=== PATIENT | female | born 1955 | race Caucasian/White ===

== ENCOUNTER 2023-02-21 11:55 | Outpatient (CLI) | payer MEDICARE | END 2023-02-21 11:56 | disposition home or self-care (01) | LOC: RAD 11:55 | PROVIDERS: ATTEND Nurse Practitioner Family | DX: R05.3 Chronic cough (principal); J98.4 Other disorders of lung; M89.9 Disorder of bone, unspecified | CPT/HCPCS: 71046 ==

== ENCOUNTER 2023-06-28 09:30 | Outpatient (CLI) | payer MEDICARE | END 2023-06-28 09:31 | disposition home or self-care (01) | LOC: PET 09:30 | PROVIDERS: ATTEND Internal Medicine Hematology & Oncology | DX: C50.812 Malignant neoplasm of overlapping sites of left female breast (principal); C79.51 Secondary malignant neoplasm of bone | CPT/HCPCS: 78815; A9552 ==

== ENCOUNTER 2023-10-04 09:30 | Outpatient (CLI) | payer MEDICARE | END 2023-10-04 09:31 | disposition home or self-care (01) | LOC: PET 09:30 | PROVIDERS: ATTEND Internal Medicine Hematology & Oncology | DX: C50.812 Malignant neoplasm of overlapping sites of left female breast (principal); C79.51 Secondary malignant neoplasm of bone | CPT/HCPCS: 78815; A9552 ==

== ENCOUNTER 2023-12-15 09:01 | Outpatient (CLI) | payer MEDICARE | END 2023-12-15 09:02 | disposition home or self-care (01) | LOC: NM 09:01 | PROVIDERS: ATTEND Internal Medicine Hematology & Oncology | DX: C50.812 Malignant neoplasm of overlapping sites of left female breast (principal); C79.51 Secondary malignant neoplasm of bone | CPT/HCPCS: 78306; A9503 ==

== ENCOUNTER 2024-04-18 08:18 | Outpatient (CLI) | payer MEDICARE | END 2024-04-18 08:19 | disposition home or self-care (01) | LOC: MRI 08:18 | PROVIDERS: ATTEND Internal Medicine Hematology & Oncology | DX: C50.812 Malignant neoplasm of overlapping sites of left female breast (principal); C79.51 Secondary malignant neoplasm of bone; R16.0 Hepatomegaly, not elsewhere classified | CPT/HCPCS: 74183; 82565 ==

== ENCOUNTER 2024-04-25 08:34 | Outpatient (CLI) | payer MEDICARE | END 2024-04-25 08:35 | disposition home or self-care (01) | LOC: NM 08:34 | PROVIDERS: ATTEND Internal Medicine Hematology & Oncology | DX: C50.812 Malignant neoplasm of overlapping sites of left female breast (principal); C79.51 Secondary malignant neoplasm of bone; R94.8 Abnormal results of function studies of other organs and systems; Z96.652 Presence of left artificial knee joint | CPT/HCPCS: 78306; A9503 ==

== ENCOUNTER 2024-09-13 08:37 | Outpatient (CLI) | payer MEDICARE ==
[2024-09-13] MEDS ORDERED: Magnevist 469MG/ML 20 ML VIAL ONE (12:37)
== END 2024-09-13 08:38 | disposition home or self-care (01) ==
LOC: NM 08:37
PROVIDERS: ATTEND Internal Medicine Hematology & Oncology
DX: C50.812 Malignant neoplasm of overlapping sites of left female breast (principal); C78.7 Secondary malignant neoplasm of liver and intrahepatic bile duct; C79.51 Secondary malignant neoplasm of bone; R59.0 Localized enlarged lymph nodes
CPT/HCPCS: 36415; 74183; 78306; 82565 ×2; A9503

== ENCOUNTER 2024-10-07 08:32 | Day surgery (SDC) | payer MEDICARE ==
[2024-10-07] MEDS ORDERED: Midazolam HCl 2 mg/2 ml Vial ONE (09:32)
[2024-10-07] MEDS ORDERED: Lidocaine 1% w/Epinephrine 1:100K 20 ML VIAL ONE (09:32)
[2024-10-07] MEDS ORDERED: fentaNYL 50 mcg/mL 1 mL Vial ONE ×2 (09:32→12:57)
[2024-10-07] MEDS ORDERED: Sodium Bicarbonate 2.5 MEQ/5 ML SDV ONE (09:33)
== END 2024-10-07 14:10 | disposition home or self-care (01) ==
LOC: CT 08:32
PROVIDERS: ATTEND Internal Medicine Hematology & Oncology
PROC: 0FB13ZX Excision of Right Lobe Liver, Percutaneous Approach, Diagnostic (ICD-10-PCS; principal; 2024-10-07)
DX: C78.7 Secondary malignant neoplasm of liver and intrahepatic bile duct (principal); C50.812 Malignant neoplasm of overlapping sites of left female breast; C79.51 Secondary malignant neoplasm of bone; D63.1 Anemia in chronic kidney disease; I48.91 Unspecified atrial fibrillation; I12.9 Hypertensive chronic kidney disease with stage 1 through stage 4 chronic kidney disease, or unspecified chronic kidney disease; N18.32 Chronic kidney disease, stage 3b; E11.22 Type 2 diabetes mellitus with diabetic chronic kidney disease; E78.00 Pure hypercholesterolemia, unspecified; R97.8 Other abnormal tumor markers; Z96.641 Presence of right artificial hip joint; Z79.01 Long term (current) use of anticoagulants; Z79.899 Other long term (current) drug therapy
CPT/HCPCS: 47000; 77012; 88333; 88334; J1642; J2250; J3010; 88307; 88313; 88341; 88342; 99152; 99153

== ENCOUNTER 2025-07-05 09:03 | Inpatient (IN) | payer MEDICARE ==
[2025-07-05 10:32] LABS: INR-International Normal Ratio 1.1; Prothrombin Time 14.0 sec (12.0-14.7)
[2025-07-05 10:33] LABS: PTT 28.0 sec (22.9-36.1)
[2025-07-05 10:47] LABS: ALT (SGPT) 44 U/L (Less than 34); AST (SGOT) 69 U/L (11-34); Albumin 3.1 g/dL (3.1-4.5); Alkaline Phosphatase 174 U/L (40-110); Anion Gap 18 mmol/L (10-20); BUN (Urea Nitrogen) 25 mg/dL (9.8-20.1); Bilirubin, Total 0.6 mg/dL (0.3-1.2); Calc. Creatinine Clearance 0 mL/min (70-130); Calcium 9.5 mg/dL (7.8-10.44); Carbon Dioxide 18 mmol/L (23-31); Chloride 106 mmol/L (98-107); Globulin 3.2 g/dL (2.4-3.5); Glucose 103 mg/dL (80-115); Magnesium 1.2 mg/dL (1.6-2.6); Potassium 3.5 mmol/L (3.5-5.1); Sodium 138 mmol/L (136-145)
[2025-07-05 10:58] LABS: Anisocytosis MODERATE=16-30 cells HPF (0-5); Burr Cells SLIGHT = 2-5 cells HPF (0-1); Macrocytosis SLIGHT = 6-15 cells HPF (0-5); Ovalocytes SLIGHT = 2-5 cells HPF (0-1); Platelet Adequacy Comment Platelets Normal; Polychromasia SLIGHT = 2-3 cells HPF (0-2)
[2025-07-05 11:02] LABS: Hematocrit 31.9 % (36.0-47.0); Hemoglobin 10.1 g/dL (12.0-16.0); Mean Corpuscular Hemoglobin 30.6 pg (27.0-31.0); Mean Corpuscular Volume 96.4 fL (78.0-98.0); Platelet Count 212 10x3/uL (130-400); Red Blood Cell (RBC) Count 3.30 mill/uL (4.20-5.40); White Blood Cell (WBC) Count 26.14 10x3/uL (4.8-10.8)
[2025-07-05] MEDS ORDERED: Cefepime 2 GM VIAL ONE (11:34)
[2025-07-05] MEDS ORDERED: Ondansetron PF 4 MG/2 ML Vial ONE (11:34)
[2025-07-05] MEDS ORDERED: Magnesium 2 GM/50 ML BAG (IN WATER) ONE (11:36)
[2025-07-05] MEDS ORDERED: Iopamidol-370 76% 500 ML MDV (1 ML CHARGE) ONE (12:28)
[2025-07-05] MEDS ORDERED: Guaifenesin DM 100-10/5 ML UDCUP PO PRN (12:47)
[2025-07-05] MEDS ORDERED: Acetaminophen 325 MG TAB PO PRN (12:47)
[2025-07-05] MEDS ORDERED: Dextrose 50% Abboject 50 ML SYRINGE SLOW IVP PRN (12:54)
[2025-07-05] MEDS ORDERED: Glucagon 1 MG/ML KIT IM PRN (12:54)
[2025-07-05] MEDS ORDERED: Electrolyte Replacement Protocol 1 EACH FS SCH (13:00)
[2025-07-05] MEDS: Vancomycin (BATCH) 2.5 GM in Premix 1 BAG IVPB SCH (14:09)
[2025-07-05 14:39] VITALS: BMI 34.9
[2025-07-05] MEDS: Magnesium 2 GM/50 ML(in water) 2 GM in Premix 1 BAG IVPB SCH (16:48)
[2025-07-05] MEDS: PNEUMOC 20-VAL CONJ-DIP CRM/PF 0.5 ML SYRINGE IM ONE (17:06)
[2025-07-05 17:55] LABS: Influenza A by NAA Not Detected (NotDetected); Influenza B by NAA Not Detected (NotDetected); RSV by NAA Not Detected (NotDetected); SARS-CoV-2 NAA Rapid Test Not Detected (NotDetected)
[2025-07-05] MEDS ORDERED: Vancomycin 1 GM in Premix 1 BAG IVPB SCH (21:00)
[2025-07-05] MEDS: Gabapentin 300 MG CAP PO SCH (21:00)
[2025-07-05] MEDS: Acetaminophen/Codeine 30-300mg Tablet PO PRN (21:01)
[2025-07-05] MEDS: Apixaban 2.5 MG TAB PO SCH (21:01)
[2025-07-05] MEDS: Famotidine/PF 20 mg/2ml Vial SLOW IVP SCH (21:02)
[2025-07-06 05:36] LABS: Vancomycin, Random 20.9 ug/mL (See Comment)
[2025-07-06 05:39] LABS: ALT (SGPT) 41 U/L (Less than 34); AST (SGOT) 63 U/L (11-34); Albumin 3.0 g/dL (3.1-4.5); Alkaline Phosphatase 156 U/L (40-110); Anion Gap 13 mmol/L (10-20); BUN (Urea Nitrogen) 21 mg/dL (9.8-20.1); Bilirubin, Total 0.5 mg/dL (0.3-1.2); Calc. Creatinine Clearance 66 mL/min (70-130); Calcium 9.2 mg/dL (7.8-10.44); Carbon Dioxide 21 mmol/L (23-31); Chloride 108 mmol/L (98-107); Globulin 3.1 g/dL (2.4-3.5); Glucose 112 mg/dL (80-115); Magnesium 1.8 mg/dL (1.6-2.6); Potassium 4.3 mmol/L (3.5-5.1); Sodium 138 mmol/L (136-145)
[2025-07-06 05:54] LABS: Hematocrit 31.1 % (36.0-47.0); Hemoglobin 9.8 g/dL (12.0-16.0); Mean Corpuscular Hemoglobin 30.2 pg (27.0-31.0); Mean Corpuscular Volume 96.0 fL (78.0-98.0); Platelet Count 209 10x3/uL (130-400); Red Blood Cell (RBC) Count 3.24 mill/uL (4.20-5.40); White Blood Cell (WBC) Count 31.52 10x3/uL (4.8-10.8)
[2025-07-06 06:25] LABS: Ovalocytes SLIGHT = 2-5 cells HPF (0-1); Platelet Adequacy Comment Platelets Normal; Smudge Cells 5.9 %
[2025-07-06] MEDS: Magnesium 2 GM/50 ML(in water) 2 GM in Premix 1 BAG IVPB SCH (08:03)
[2025-07-06] MEDS: hydrALAZINE 20 MG/ML VIAL SLOW IVP PRN (08:22)
[2025-07-06] MEDS ORDERED: Vancomycin 1.5 GM / NS 500ML VIAL-2-BAG IVPB SCH (14:00)
[2025-07-06] MEDS: Mupirocin 1 GM TUBE NASAL DECOLONIZATION NASAL SCH (21:14)
[2025-07-06] MEDS: Pantoprazole 40 MG DR.TAB PO SCH (21:14)
[2025-07-06] MEDS: Transdermal Patch Removal TOP SCH (21:15)
[2025-07-07 04:18] LABS: Hematocrit 31.3 % (36.0-47.0); Hemoglobin 9.8 g/dL (12.0-16.0); Mean Corpuscular Hemoglobin 30.0 pg (27.0-31.0); Mean Corpuscular Volume 95.7 fL (78.0-98.0); Platelet Count 216 10x3/uL (130-400); Red Blood Cell (RBC) Count 3.27 mill/uL (4.20-5.40); White Blood Cell (WBC) Count 34.01 10x3/uL (4.8-10.8)
[2025-07-07 04:24] LABS: Anion Gap 16 mmol/L (10-20); BUN (Urea Nitrogen) 18 mg/dL (9.8-20.1); Calc. Creatinine Clearance 67 mL/min (70-130); Calcium 9.7 mg/dL (7.8-10.44); Carbon Dioxide 21 mmol/L (23-31); Chloride 107 mmol/L (98-107); Glucose 155 mg/dL (80-115); Potassium 4.2 mmol/L (3.5-5.1); Sodium 140 mmol/L (136-145)
[2025-07-07 04:40] LABS: Platelet Adequacy Comment Platelets Normal; Smudge Cells 2.0 %
[2025-07-07] MEDS: glipiZIDE 5 MG TAB PO SCH (09:47)
[2025-07-07] MEDS: Furosemide 40 MG (4 mL) VIAL SLOW IVP SCH (11:52)
[2025-07-07] MEDS: Melatonin 3 MG TAB PO PRN (21:19)
[2025-07-08 04:22] LABS: Vancomycin, Random 32.2 ug/mL (See Comment)
[2025-07-08 04:25] LABS: Anion Gap 12 mmol/L (10-20); BUN (Urea Nitrogen) 22 mg/dL (9.8-20.1); Calc. Creatinine Clearance 48 mL/min (70-130); Calcium 9.5 mg/dL (7.8-10.44); Carbon Dioxide 26 mmol/L (23-31); Chloride 98 mmol/L (98-107); Glucose 200 mg/dL (80-115); Potassium 3.8 mmol/L (3.5-5.1); Sodium 132 mmol/L (136-145)
[2025-07-08 04:29] LABS: Hematocrit 30.4 % (36.0-47.0); Hemoglobin 9.5 g/dL (12.0-16.0); Mean Corpuscular Hemoglobin 29.7 pg (27.0-31.0); Mean Corpuscular Volume 95.0 fL (78.0-98.0); Platelet Count 183 10x3/uL (130-400); Red Blood Cell (RBC) Count 3.20 mill/uL (4.20-5.40); White Blood Cell (WBC) Count 27.40 10x3/uL (4.8-10.8)
[2025-07-08 05:12] LABS: Macrocytosis SLIGHT = 6-15 cells HPF (0-5); Ovalocytes SLIGHT = 2-5 cells HPF (0-1); Platelet Adequacy Comment Platelets Normal; Polychromasia SLIGHT = 2-3 cells HPF (0-2); Smudge Cells 2.0 %; Stomatocytes SLIGHT = 2-5 cells HPF (0-1)
[2025-07-08] MEDS: Albumin 25% 25 GM (100 mL) BOT IVPB SCH (12:18)
[2025-07-08 18:40] VITALS: BP 123/71; TEMP 98.6
[2025-07-08 19:14] LABS: L.pneumophilia Abs Non Reactive (Non Reactive)
== END 2025-07-08 18:30 | disposition home or self-care (01) | DRG 194 ==
LOC: ERS 09:03 → SUATTDRO 09:03 → MSONC 12:00
PROVIDERS: ADMIT Internal Medicine; ATTEND Family Medicine
DX: J18.9 Pneumonia, unspecified organism (principal); C78.7 Secondary malignant neoplasm of liver and intrahepatic bile duct; C79.51 Secondary malignant neoplasm of bone; N17.9 Acute kidney failure, unspecified; I48.91 Unspecified atrial fibrillation; C50.919 Malignant neoplasm of unspecified site of unspecified female breast; E11.9 Type 2 diabetes mellitus without complications; F41.9 Anxiety disorder, unspecified; F32.A Depression, unspecified; Z98.890 Other specified postprocedural states; M25.559 Pain in unspecified hip; E78.5 Hyperlipidemia, unspecified; Z79.899 Other long term (current) drug therapy
CPT/HCPCS: 36415; 36416; 70496; 70498; 71045; 80048; 80053; 80202; 83605; 83735; 83880; 84145; 84484; 85025; 85610; 85730; 86713; 87040; 87081; 87637; 93005; 96365; 96368; 96375; J0360; J0692; J1308; J1642; J1940; J2405; J3373; J3475; J7030; P9047; Q9967

== ENCOUNTER 2025-09-02 23:05 | Inpatient (IN) | payer MEDICARE ==
[2025-09-03 00:03] LABS: #Basophils 0.07 10x3/uL (0.0-0.2); #Eosinophils 0.04 10x3/uL (0.0-0.7); #Monocytes 0.52 10x3/uL (0.11-0.59); #Neutrophils 20.78 10x3/uL (1.40-6.50); %Basophils 0.3 % (0.0-1.0); %Eosinophils 0.2 % (0.0-10.0); %Lymphocytes 7.2 % (21.0-51.0); %Monocytes 2.2 % (0.0-10.0); %Neutrophils 88.5 % (42.0-75.0); Hematocrit 30.9 % (36.0-47.0); Hemoglobin 10.2 g/dL (12.0-16.0); Mean Corpuscular Hemoglobin 29.0 pg (27.0-31.0); Mean Corpuscular Volume 87.8 fL (78.0-98.0); Platelet Count 176 10x3/uL (130-400); Red Blood Cell (RBC) Count 3.52 mill/uL (4.20-5.40); White Blood Cell (WBC) Count 23.49 10x3/uL (4.8-10.8)
[2025-09-03 00:33] LABS: ALT (SGPT) 11 U/L (Less than 34); AST (SGOT) 25 U/L (11-34); Albumin 3.1 g/dL (3.1-4.5); Alkaline Phosphatase 275 U/L (40-110); Anion Gap 21 mmol/L (10-20); BUN (Urea Nitrogen) 12 mg/dL (9.8-20.1); Bilirubin, Total 0.9 mg/dL (0.3-1.2); Calc. Creatinine Clearance 0 mL/min (70-130); Calcium 9.3 mg/dL (7.8-10.44); Carbon Dioxide 22 mmol/L (23-31); Chloride 99 mmol/L (98-107); Globulin 3.4 g/dL (2.4-3.5); Glucose 188 mg/dL (80-115); Lipase 36 U/L (8-78); Magnesium 0.9 mg/dL (1.6-2.6); Potassium 2.9 mmol/L (3.5-5.1); Sodium 139 mmol/L (136-145)
[2025-09-03] MEDS ORDERED: Dexamethasone 10 MG/ML VIAL ONE (00:43)
[2025-09-03] MEDS ORDERED: Magnesium 2 GM/50 ML BAG (IN WATER) ONE (00:43)
[2025-09-03] MEDS ORDERED: Calcium Carbonate 500 MG ChewTAB PO PRN (01:33)
[2025-09-03] MEDS ORDERED: Acetaminophen 325 MG TAB PO PRN (01:33)
[2025-09-03] MEDS ORDERED: Potassium Chloride 20 MEQ (100 mL) BAG ONE (01:43)
[2025-09-03] MEDS ORDERED: Glucagon 1 MG/ML KIT IM PRN (02:08)
[2025-09-03] MEDS ORDERED: Dextrose 50% Abboject 50 ML SYRINGE SLOW IVP PRN (02:08)
[2025-09-03] MEDS: ALPRAZolam 0.25 MG TAB PO PRN (03:20)
[2025-09-03] MEDS: Ondansetron PF 4 MG/2 ML Vial IVP PRN (03:20)
[2025-09-03] MEDS: Fosaprepitant Dimeglumine 150 MG in 0.9 % Sodium Chloride 145 ML IVPB SCH (03:24)
[2025-09-03] MEDS: PALONOSETRON HCL 0.05 MG/ML 5 ML VIAL IVP SCH (03:25)
[2025-09-03] MEDS: NS 0.9% w/ 40 MEQ KCL 1,000 ML IV SCH (03:28)
[2025-09-03] MEDS: Metoclopramide HCl 10 MG (2 mL) VIAL IVP SCH (05:02)
[2025-09-03 06:34] LABS: Hematocrit 33.4 % (36.0-47.0); Hemoglobin 10.7 g/dL (12.0-16.0); Mean Corpuscular Hemoglobin 28.2 pg (27.0-31.0); Mean Corpuscular Volume 88.1 fL (78.0-98.0); Platelet Count 177 10x3/uL (130-400); Red Blood Cell (RBC) Count 3.79 mill/uL (4.20-5.40); White Blood Cell (WBC) Count 29.16 10x3/uL (4.8-10.8)
[2025-09-03 06:56] LABS: ALT (SGPT) 14 U/L (Less than 34); AST (SGOT) 33 U/L (11-34); Albumin 3.2 g/dL (3.1-4.5); Alkaline Phosphatase 287 U/L (40-110); Anion Gap 23 mmol/L (10-20); BUN (Urea Nitrogen) 10 mg/dL (9.8-20.1); Bilirubin, Total 1.6 mg/dL (0.3-1.2); Calc. Creatinine Clearance 62 mL/min (70-130); Calcium 9.2 mg/dL (7.8-10.44); Carbon Dioxide 21 mmol/L (23-31); Chloride 97 mmol/L (98-107); Globulin 3.6 g/dL (2.4-3.5); Glucose 290 mg/dL (80-115); Magnesium 1.4 mg/dL (1.6-2.6); Potassium 3.4 mmol/L (3.5-5.1); Sodium 138 mmol/L (136-145)
[2025-09-03 07:13] LABS: Ovalocytes SLIGHT = 2-5 cells HPF (0-1); Platelet Adequacy Comment Platelets Normal; Smudge Cells 2.0 %
[2025-09-03] MEDS ORDERED: NALOXONE HCL 4 MG NS PRN (08:09)
[2025-09-03] MEDS: Magnesium Sulfate In Water 4 GM in Premix 1 BAG IVPB SCH (08:47)
[2025-09-03] MEDS: Pantoprazole 40 MG VIAL IVP SCH (08:47)
[2025-09-03] MEDS: Mupirocin 1 GM TUBE NASAL DECOLONIZATION NASAL SCH (08:48)
[2025-09-03] MEDS: Apixaban 2.5 MG TAB PO SCH (11:25)
[2025-09-03] MEDS: glipiZIDE 5 MG TAB PO SCH (11:25)
[2025-09-03] MEDS: Insulin Glargine 30 UNITS/0.3 ML VIAL SC SCH (21:56)
[2025-09-04 05:35] LABS: Hematocrit 31.7 % (36.0-47.0); Hemoglobin 10.1 g/dL (12.0-16.0); Mean Corpuscular Hemoglobin 28.4 pg (27.0-31.0); Mean Corpuscular Volume 89.0 fL (78.0-98.0); Platelet Count 191 10x3/uL (130-400); Red Blood Cell (RBC) Count 3.56 mill/uL (4.20-5.40); White Blood Cell (WBC) Count 36.00 10x3/uL (4.8-10.8)
[2025-09-04 05:43] VITALS: BMI 34.3
[2025-09-04 05:50] LABS: ALT (SGPT) 12 U/L (Less than 34); AST (SGOT) 36 U/L (11-34); Albumin 2.9 g/dL (3.1-4.5); Alkaline Phosphatase 231 U/L (40-110); Anion Gap 14 mmol/L (10-20); BUN (Urea Nitrogen) 14 mg/dL (9.8-20.1); Bilirubin, Total 0.8 mg/dL (0.3-1.2); Calc. Creatinine Clearance 65 mL/min (70-130); Calcium 9.2 mg/dL (7.8-10.44); Carbon Dioxide 26 mmol/L (23-31); Chloride 102 mmol/L (98-107); Globulin 3.1 g/dL (2.4-3.5); Glucose 239 mg/dL (80-115); Potassium 3.6 mmol/L (3.5-5.1); Sodium 138 mmol/L (136-145)
[2025-09-04 05:58] LABS: Platelet Adequacy Comment Platelets Normal; Polychromasia SLIGHT = 2-3 cells HPF (0-2); Smudge Cells 5.9 %
[2025-09-05] MEDS ORDERED: Glycerin Adult Supp. (12 ct jar) PR PRN (10:49)
[2025-09-05] MEDS: Glycerin Adult Supp. (12 ct jar) PR SCH (11:49)
[2025-09-05] MEDS: Furosemide 40 MG (4 mL) VIAL SLOW IVP SCH (11:50)
[2025-09-05 14:21] VITALS: BMI 34.2
[2025-09-06 07:20] LABS: #Basophils 0.03 10x3/uL (0.0-0.2); #Eosinophils 0.06 10x3/uL (0.0-0.7); #Monocytes 0.37 10x3/uL (0.11-0.59); #Neutrophils 11.60 10x3/uL (1.40-6.50); %Basophils 0.2 % (0.0-1.0); %Eosinophils 0.5 % (0.0-10.0); %Lymphocytes 8.8 % (21.0-51.0); %Monocytes 2.8 % (0.0-10.0); %Neutrophils 87.0 % (42.0-75.0); Hematocrit 29.9 % (36.0-47.0); Hemoglobin 9.4 g/dL (12.0-16.0); Mean Corpuscular Hemoglobin 28.9 pg (27.0-31.0); Mean Corpuscular Volume 92.0 fL (78.0-98.0); Platelet Count 127 10x3/uL (130-400); Red Blood Cell (RBC) Count 3.25 mill/uL (4.20-5.40); White Blood Cell (WBC) Count 13.32 10x3/uL (4.8-10.8)
[2025-09-06 07:39] LABS: Anion Gap 13 mmol/L (10-20); BUN (Urea Nitrogen) 24 mg/dL (9.8-20.1); Calc. Creatinine Clearance 61 mL/min (70-130); Calcium 8.9 mg/dL (7.8-10.44); Carbon Dioxide 29 mmol/L (23-31); Chloride 99 mmol/L (98-107); Glucose 152 mg/dL (80-115); Potassium 2.9 mmol/L (3.5-5.1); Sodium 138 mmol/L (136-145)
[2025-09-06 11:41] VITALS: BP 108/72; TEMP 98.1
[2025-09-06] MEDS: Furosemide 40 MG (4 mL) VIAL SLOW IVP SCH (12:00)
== END 2025-09-06 12:21 | disposition home or self-care (01) | DRG 391 ==
LOC: ERS 23:05 → SURG B 09-03 01:23 → OBSVTOIN 09-04 17:24
PROVIDERS: ADMIT Internal Medicine; ATTEND Hospitalist
DX: R11.2 Nausea with vomiting, unspecified (principal); I50.31 Acute diastolic (congestive) heart failure; C78.7 Secondary malignant neoplasm of liver and intrahepatic bile duct; C77.1 Secondary and unspecified malignant neoplasm of intrathoracic lymph nodes; C79.51 Secondary malignant neoplasm of bone; N17.9 Acute kidney failure, unspecified; E87.20 Acidosis, unspecified; C50.919 Malignant neoplasm of unspecified site of unspecified female breast; Z66 Do not resuscitate; E87.6 Hypokalemia; I48.91 Unspecified atrial fibrillation; E83.42 Hypomagnesemia; N18.9 Chronic kidney disease, unspecified; E11.22 Type 2 diabetes mellitus with diabetic chronic kidney disease; E11.65 Type 2 diabetes mellitus with hyperglycemia; E78.5 Hyperlipidemia, unspecified; E66.01 Morbid (severe) obesity due to excess calories; K59.00 Constipation, unspecified; Z96.651 Presence of right artificial knee joint; E86.0 Dehydration; T45.1X5A Adverse effect of antineoplastic and immunosuppressive drugs, initial encounter; Z98.890 Other specified postprocedural states; Z88.8 Allergy status to other drugs, medicaments and biological substances; Z68.33 Body mass index [BMI] 33.0-33.9, adult
CPT/HCPCS: 36415; 36416; 71045; 80048; 80053; 83690; 83735; 85025; 93005; 96365; 96366; 96367; 96375; 96376; G0378; J1100; J1453; J1642; J1815; J1940; J2060; J2270; J2405; J2469; J2470; J2550; J2765; J3475; J3480; J7030; Q0169